=== PATIENT | female | born 1955 | race Caucasian/White ===

== ENCOUNTER 2016-09-08 05:40 | Inpatient (IN) | payer BC ==
[~2016-09-08] VITALS: Ht 167.6 cm; Wt 99.8 kg
[~2016-09-08 05:40] MED LIST: ASPI-1063 PO; ATEN100T44 PO
[2016-09-08] MEDS ORDERED: SUCCINYLCHOLINE CHLORIDE 20 MG/ML(QUELICIN) IVP ONE (07:15)
[2016-09-08] MEDS ORDERED: SEVOFLURANE 15 MIN GAS INH ONE (07:15)
[2016-09-08] MEDS ORDERED: LR 1,000 ML IV.SOLN IV ONE (07:15)
[2016-09-08] MEDS ORDERED: MIDAZOLAM HCL 5 MG/5 ML VIAL IVP ONE (07:15)
[2016-09-08] MEDS ORDERED: BACITRACIN ZINC 15 GM TOPICAL OINTMENT TP ONE (07:15)
[2016-09-08] MEDS ORDERED: ONDANSETRON HCL 4 MG/2 ML VIAL IVP ONE (07:15)
[2016-09-08] MEDS ORDERED: PROPOFOL 200MG/ 20ML VIAL (DIPRIVAN) IV ONE (07:15)
[2016-09-08] MEDS ORDERED: CEFAZOLIN 2 GM IVPB PREMIX 50 ML IV ONE (07:15)
[2016-09-08] MEDS ORDERED: NS IRRIG SOLN 1000 ML IR ONE (07:15)
[2016-09-08] MEDS ORDERED: LIDOCAINE/EPI 1% 1:100000 20 ML VIAL INJ ONE (07:15)
[2016-09-08] MEDS ORDERED: DEXAMETHASONE SOD PHOSPHATE 4 MG/ML VIAL IVP ONE (07:15)
[2016-09-08] MEDS ORDERED: THROMBIN (BOVINE) 5000 UNITS/ VIAL TP ONE (07:15)
[2016-09-08] MEDS ORDERED: fentaNYL CITRATE 250 MCG/5 ML AMP IV ONE (07:15)
[2016-09-08] MEDS ORDERED: LR 1,000 ML IV SCH (08:48)
[2016-09-08] MEDS ORDERED: MORPHINE 4 MG/ML INJ. SYRINGE IVP PRN ×3 (09:00)
[2016-09-08] MEDS ORDERED: METOCLOPRAMIDE HCL 10 MG/2 ML VIAL IVP PRN ×2 (09:00→18:45)
[2016-09-08] MEDS ORDERED: ONDANSETRON HCL 4 MG/2 ML VIAL IVP PRN (09:45)
[2016-09-08] MEDS ORDERED: hydrALAZINE HCL 20 MG/ML VIAL ONE ×2 (10:24→15:58)
[2016-09-08] MEDS ORDERED: hydrALAZINE HCL 20 MG/ML VIAL IVP PRN ×3 (10:30→16:00)
[2016-09-08] MEDS ORDERED: MORPHINE 4 MG/ML INJ. SYRINGE ONE (10:38)
[2016-09-08] MEDS ORDERED: METOCLOPRAMIDE HCL 10 MG/2 ML VIAL ONE (10:42)
[2016-09-08 11:20] VITALS: BP_SYST 152
[2016-09-08 12:58] VITALS: BP_SYST 152
[2016-09-08] MEDS: NORMAL SALINE 5 ML DISP.SYRIN IVF SCH ×2 (13:24→23:06)
[2016-09-08] MEDS: HYDROcodone/ACETAMIN 5-325 MG TAB (NORCO/ VICODIN) PO PRN (14:18)
[2016-09-08] MEDS ORDERED: HYDROmorphone 1 MG INJ. 1 MG/ML AMPUL ONE (15:03)
[2016-09-08] MEDS: DEXAMETHASONE SOD PHOSPHATE 4 MG/ML VIAL IVP SCH ×2 (15:53→23:06)
[2016-09-08] MEDS ORDERED: HYDROcodone/ACETAMIN 5-325 MG TAB (NORCO/ VICODIN) PO ONE (18:45)
[2016-09-08 19:45] VITALS: BP_SYST 107
[2016-09-09 00:09] VITALS: BP_SYST 148
[2016-09-09] MEDS: HYDROcodone/ACETAMIN 5-325 MG TAB (NORCO/ VICODIN) PO PRN (03:22)
[2016-09-09 04:12] VITALS: BP_SYST 139
[2016-09-09 08:27] VITALS: BP_SYST 134
[2016-09-09 08:35] VITALS: BP_SYST 134
[2016-09-09] MEDS ORDERED: ATENOLOL 50 MG TABLET (TENORMIN) PO SCH (09:00)
== END 2016-09-09 09:00 | disposition home or self-care (01) | DRG 627 ==
LOC: SMU 05:40 → STU 15:50
PROVIDERS: ADMIT Otolaryngology Plastic Surgery within the Head & Neck; ATTEND Otolaryngology Plastic Surgery within the Head & Neck
PROC: 4A11X4G Monitoring of Peripheral Nervous Electrical Activity, Intraoperative, External Approach (ICD-10-PCS; 2016-09-08)
PROC: 0GTH0ZZ Resection of Right Thyroid Gland Lobe, Open Approach (ICD-10-PCS; principal; 2016-09-08 07:30)
DX: E04.9 Nontoxic goiter, unspecified (principal); I10 Essential (primary) hypertension; E66.01 Morbid (severe) obesity due to excess calories; Z68.35 Body mass index [BMI] 35.0-35.9, adult
CPT/HCPCS: 87081; 88307; C1782; J0330; J0360; J0690; J1100; J1170; J2250; J2270; J2405; J2704; J2765; J3010; J7120